=== PATIENT | male | born 1960 | race Caucasian/White ===

== ENCOUNTER 2016-06-16 09:09 | Day surgery (SDC) | payer OTHER ==
[~2016-06-16] VITALS: Ht 170.2 cm; Wt 90.2 kg
[2016-06-16 10:40] VITALS: Ht 170.2 cm; Wt 90.2 kg
[2016-06-16 11:20] VITALS: BP 165/83; PULSE 50; RESP 16
[2016-06-16] MEDS ORDERED: LIDOCAINE 4% SOLUTION 50 ML BTL ONE (11:32)
[2016-06-16] MEDS ORDERED: FENTAnyl 50 MCG/ML VIAL ONE (12:18)
[2016-06-16] MEDS ORDERED: MIDAZOLAM 1 MG/ML 2 ML INJ ONE ×2 (12:18)
--- NOTE | 2016-06-16 14:01 | GILP ---
DATE OF PROCEDURE: 06/16/2016 NAME OF PROCEDURE: Colonoscopy and polypectomy. PREOPERATIVE DIAGNOSIS: Occult gastrointestinal bleeding, rule out colorectal neoplasm. POSTOPERATIVE DIAGNOSES: Two polyps noted as described below. DESCRIPTION OF PROCEDURE: After the informed written consent was obtained, the patient was asked to lie on the left lateral side and 3 mg Versed and 50 mcg of fentanyl was given as intravenous anesth esia. When the patient became somnolent, the Olympus video colonoscope was introduced into the rectum and scope was advanced all the way to the cecum. There is evidence of 7 to 8 mm polyp on a stalk noted just above the ileocecal valve which is the proximal ascending colon. By using the hot snare, polyp ectomy was performed. Polyp was retrieved and sent for histopathology. On the way out at about 30 cm from the anus, there is evidence of a 2 cm polyp on a stalk was noted. This polyp was also remov ed with hot snare. Endoscope at this time was withdrawn and on the way out, minimal external hemorrh oids were noted and the procedure was terminated. PLAN: Recommend wait for the pathology report and next colonoscopy depends upon the pathology repor t. Dictated By: JAYLON ALBRIGHT MD NC/NTS Conf#: [id number] DID#: [id number] CC: JAYLON ALBRIGHT MD; CAITLYN MARIN MD;*End*
--- NOTE | 2016-06-16 14:02 | GILP ---
DATE OF PROCEDURE: PROCEDURE: Esophagogastroduodenoscopy. PREOPERATIVE DIAGNOSIS: Patient presenting with history of guaiac positive stools, rule out peptic ulcer disease. POSTOPERATIVE DIAGNOSES: 1. Patchy antral gastritis and fundal gastritis. 2. Reflux esophagitis, Tuttle classification B. DESCRIPTION OF PROCEDURE: After the informed written consent was obtained, the patient was asked to lie on the left lateral side. The patient was given intravenous anesthesia, which included 3 mg Ve rsed and 50 mcg of fentanyl. When the patient became somnolent, the Olympus video upper endoscope w as introduced into the oropharynx, then into the esophagus. The distal esophagus above the GE junct ion, there were linear erosions noted. Biopsies were done to rule out Loera's esophagus, eosinoph ilic esophagitis. Scope at this time was advanced into the stomach. Erythema noted in the antrum a nd also in the fundus of the stomach, indicating mild gastritis. Biopsy was done from the antrum an d the lesser curvature and the fundus to rule out H. pylori infection. Scope at this time was advan patricia into the duodenum. Entire mucosa of the duodenum from the bulb all the way up to the end of the second portion appeared normal with no duodenitis. No ulcer disease. Scope at this time was withd rawn. On the way out, no additional abnormalities detected, and the procedure was terminated. PLAN: Recommend proton pump inhibitor therapy. Dictated By: JAYLON LISA/CHYAA Conf#: [id number] DID#: [id number] CC: [place];*EndCC*
== END 2016-06-16 15:04 | disposition home or self-care (01) ==
LOC: GIL 09:09
PROVIDERS: ATTEND Internal Medicine Gastroenterology
DX: K21.0 Gastro-esophageal reflux disease with esophagitis (principal); D12.2 Benign neoplasm of ascending colon; K29.60 Other gastritis without bleeding; K64.4 Residual hemorrhoidal skin tags
CPT/HCPCS: 43239; 45380; 88305; 88312; 88313; J2250; J3010; Z7610